=== PATIENT | male | born 1965 | race Hispanic/Latino ===

== ENCOUNTER 2024-07-01 13:18 | Emergency (ER) | payer SELFPAY ==
--- NOTE | ~2024-07-01 | XR_ITS ---
EXAMINATION: XR chest 2V DATE: 07/01/2024 13:54 INDICATION: Chest pain. Palpitations. TECHNIQUE: Frontal and lateral views of the chest were obtained. COMPARISON: None. FINDINGS: There is no pneumonia, pleural effusion, or pneumothorax. The heart size is normal. There i s mild chronic anterior wedging of multiple vertebral bodies. IMPRESSION: 1. No acute cardiopulmonary disease. Reviewed, dictated and finalized at location [facility]
[2024-07-01 13:22] VITALS: BP 145/76; PULSE 93; RESP 16; TEMP 36.6; O2SAT 99
--- NOTE | 2024-07-01 13:30 | PC.NURSE ---
ELO Cam[place]illo in triage room assessing pt.
--- NOTE | 2024-07-01 13:31 | ECG_ITS ---
Test Date: 2024-07-01 13:38:13 Measurements Intervals [place] Rate: 78 P: 70 WI: 169 QRS: 40 QRSD: 87 T: 44 QT: 346 QTc: 396 Interpretive Statements SINUS RHYTHM No previous ECG available for comparison Electronically Signed On 07-01-2024 15:32:22 [facility] DIRECT[facility] by Cyndie Jean M.D.
--- NOTE | 2024-07-01 13:42 | ED.ARRPALP ---
HPI - Arrhythmia/Palpitations General Chief Complaint: Arrhythmia/Palpitations <Cathy Tong APRN - Last Filed: 07/01/24 13:45> Stated Complaint: not feeling well <Cathy Tong APRN - Last Filed: 07/01/24 13:45> Time Seen by Provider: 07/01/24 13:30 <Cathy Tong APRN - Last Filed: 07/01/24 13:45> Focused HPI: Patient is the 58-year-old male who presents to the ER with complaints of heart palpitations and weakness. He reports he believes his symptoms are related to him being nervous. Patient reports he recently got and has been experiencing more anxiety since then. He endorses a small amount of shortness of breath. Patient endorses a history of cardiac stents, but no other pertinent medical history related to this ER visit. He denies any recent fevers, abdominal pain, back pain, other signs/ symptoms of infection. GENERAL: Well-appearing, well-nourished, and in no acute distress. HEAD: Normocephalic, atraumatic. CHEST: Clear to auscultation. ?No respiratory distress. HEART: Regular rate and rhythm.? NEURO: ?Alert and oriented x3. Patient screened in triage and initial orders placed.? ?Additional care and disposition to be based upon?diagnostic testing and treatment. <Cathy Tong APRN - Last Filed: 07/01/24 13:45> History of Present Illness HPI narrative: Agree with the above HPI <Ashutosh Blum MD - Last Filed: 07/02/24 13:52> Related Data Allergies/Adverse Reactions: Allergies Allergy/AdvReac Type Severity Reaction Status Date / Time No Known Allergies Allergy Verified 07/01/24 13:30 <Cathy Tong APRN - Last Filed: 07/01/24 13:45> Review of Systems Review of Systems: All systems reviewed & are unremarkable except as noted in HPI and below <Ashutosh Blum MD - Last Filed: 07/02/24 13:52> Exam Narrative: APPEARANCE: Well appearing, no pain, no distress, well-nourished. HEAD: normocephalic, atraumatic. EYES: PERRLA/EOMI, conjunctivae clear. NOSE: Normal no drainage EARS:TMS clear with good light reflex. THROAT: Pharynx clear, no exudate. NECK: Supple. No adenopathy, no masses. RESPIRATORY: Airway patent, respirations nonlabored. Clear to auscultation bilaterally, no rales, rhonchi, wheezing. CARDIOVASCULAR: Regular rate and rhythm without murmurs rubs or gallops. ABDOMINAL: Soft, nontender, nondistended, normal bowel sounds MUSCULOSKELETAL: Moves all extremities. Strength/ROM intact, No edema, No calf tenderness. NEURO: Alert. Cranial nerves II through XII intact. SKIN: Warm, dry. Normal Color <Ashutosh Blum MD - Last Filed: 07/02/24 13:52> Course Vital Signs Vital signs: Vital Signs Temperature 97.9 F 07/01/24 13:22 Pulse Rate 93 07/01/24 13:22 Respiratory Rate 16 07/01/24 13:22 Blood Pressure 145/76 H 07/01/24 13:22 Pulse Oximetry 99 07/01/24 13:22 Oxygen Delivery Room Air 07/01/24 13:22 Temperature 97.9 F 07/01/24 13:22 Pulse Rate 71 07/01/24 18:27 Respiratory Rate 20 07/01/24 18:27 Blood Pressure 131/82 07/01/24 18:27 Pulse Oximetry 99 07/01/24 18:27 Oxygen Delivery Room Air 07/01/24 13:22 <Cathy Tong APRN - Last Filed: 07/01/24 13:45> Vital Signs Temperature 97.9 F 07/01/24 13:22 Pulse Rate 93 07/01/24 13:22 Respiratory Rate 16 07/01/24 13:22 Blood Pressure 145/76 H 07/01/24 13:22 Pulse Oximetry 99 07/01/24 13:22 Oxygen Delivery Room Air 07/01/24 13:22 Temperature 97.9 F 07/01/24 13:22 Pulse Rate 71 07/01/24 18:27 Respiratory Rate 20 07/01/24 18:27 Blood Pressure 131/82 07/01/24 18:27 Pulse Oximetry 99 07/01/24 18:27 Oxygen Delivery Room Air 07/01/24 13:22 <Ashutosh Blum MD - Last Filed: 07/02/24 13:52> MDM - Arrhythmia/Palpitations MDM Narrative Medical decision making narrative: 58-year-old male present to the emergency department for evaluation of anxiety in her palpitations. Patient is afebrile with no leukocytosis and hemoglobin of 15.6 patient had negative serial troponins patient has no acute abnormalities on his CMP patient was negative for influenza RSV and for COVID. Patient did feel improved with anxiety medications. Patient was encouraged close follow-up with primary care physician. All questions concerns were addressed. <Ashutosh Blum MD - Last Filed: 07/02/24 13:52> Differential Diagnosis Differential diagnosis: Likely palpitations, anxiety, sinus tachycardia, artial fibrillation, artial flutter, ventricular premature beats, supraventricular tachycardia and ventricular tachycardia <Ashutosh Blum MD - Last Filed: 07/02/24 13:52> Lab Data Attestation: I reviewed the patient's lab results. <Ashutosh Blum MD - Last Filed: 07/02/24 13:52> Result diagrams: 07/01/24 13:41 07/01/24 13:41 <Cathy Tong APRN - Last Filed: 07/01/24 13:45> Labs: Lab Results 07/01/24 07/01/24 Range/Units 13:41 16:53 WBC 10.0 (4.5-10.0) K/mm3 RBC 5.09 (4.6-6.20) M/mm3 Hgb 15.6 (14.0-18.0) g/dL Hct 46.1 (42.0-52.0) % MCV 90.6 (80-100) fl MCH 30.6 (26-34) pg MCHC 33.8 (32-36) g/dl RDW 12.1 (11.5-14.5) % Plt Count 218 (150-375) k/mm3 MPV 9.2 (7.4-10.4) fl Immature Gran % (Auto) 0.3 (0-0.5) % Neut % (Auto) 74.9 H (45.5-73.1) % Lymph % (Auto) 15.5 L (18.3-44.2) % [place] % (Auto) 5.7 (2.6-8.5) % Eos % (Auto) 3.2 (0-4.4) % Baso % (Auto) 0.4 (0.2-1.2) % Lymph # (Auto) 1.56 (0.9-3.2) K/mm3 [place] # (Auto) 0.6 (0.1-0.6) K/mm3 Eos # (Auto) 0.3 (0-0.3) K/mm3 Baso # (Auto) 0.0 (0.0-0.1) K/mm3 Abs Immat Gran (auto) 0.03 (0.00-0.031) K/mm3 Absolute Neuts (auto) 7.5 H (1.3-6.7) K/mm3 Absolute Nucleated RBC 0.000 (0.0-0.012) K/mm3 Nucleated RBC % 0.0 (0.0-0.2) % PT 13.0 (11.1-14.7) Seconds INR 0.9 APTT 25.0 (22.3-36.8) Seconds Sodium 137 (137-145) mmol/L Potassium 3.9 (3.4-5.0) mmol/L Chloride 104 (98-107) mmol/L Carbon Dioxide 26 (22-30) mmol/L Anion Gap 7 (4-12) mmol/L BUN 16 (9-20) mg/dL Creatinine 1.10 (0.7-1.3) mg/dL Estim Creat Clear Calc Not Reportable Estimated GFR > 60 (59 - ) Glucose 166 H (65-110) mg/dL Calcium 9.2 (8.4-10.2) mg/dL Total Bilirubin 1.2 (0.2-1.3) mg/dL AST 36 (17-59) U/L ALT 50 (6-50) U/L Alkaline Phosphatase 93 (38-126) U/L Troponin I < 0.012 < 0.012 (0.000-0.034) ng/mL Total Protein 8.0 (6.3-8.2) g/dL Albumin 4.8 (3.5-5.1) g/dL Lipase 222 (23-300) U/L Influenza A (RT-PCR) Negative (Negative) Influenza B (RT-PCR) Negative (Negative) RSV (RT-PCR) Negative (Negative) SARS-CoV-2 RNA (RT-PCR) Negative (Negative) <Cathy Tong, HAND TRUCKER - Last Filed: 07/01/24 13:45> Lab Results 07/01/24 07/01/24 Range/Units 13:41 16:53 WBC 10.0 (4.5-10.0) K/mm3 RBC 5.09 (4.6-6.20) M/mm3 Hgb 15.6 (14.0-18.0) g/dL Hct 46.1 (42.0-52.0) % MCV 90.6 (80-100) fl MCH 30.6 (26-34) pg MCHC 33.8 (32-36) g/dl RDW 12.1 (11.5-14.5) % Plt Count 218 (150-375) k/mm3 MPV 9.2 (7.4-10.4) fl Immature Gran % (Auto) 0.3 (0-0.5) % Neut % (Auto) 74.9 H (45.5-73.1) % Lymph % (Auto) 15.5 L (18.3-44.2) % [place] % (Auto) 5.7 (2.6-8.5) % Eos % (Auto) 3.2 (0-4.4) % Baso % (Auto) 0.4 (0.2-1.2) % Lymph # (Auto) 1.56 (0.9-3.2) K/mm3 [place] # (Auto) 0.6 (0.1-0.6) K/mm3 Eos # (Auto) 0.3 (0-0.3) K/mm3 Baso # (Auto) 0.0 (0.0-0.1) K/mm3 Abs Immat Gran (auto) 0.03 (0.00-0.031) K/mm3 Absolute Neuts (auto) 7.5 H (1.3-6.7) K/mm3 Absolute Nucleated RBC 0.000 (0.0-0.012) K/mm3 Nucleated RBC % 0.0 (0.0-0.2) % PT 13.0 (11.1-14.7) Seconds INR 0.9 APTT 25.0 (22.3-36.8) Seconds Sodium 137 (137-145) mmol/L Potassium 3.9 (3.4-5.0) mmol/L Chloride 104 (98-107) mmol/L Carbon Dioxide 26 (22-30) mmol/L Anion Gap 7 (4-12) mmol/L BUN 16 (9-20) mg/dL Creatinine 1.10 (0.7-1.3) mg/dL Estim Creat Clear Calc Not Reportable Estimated GFR > 60 (59 - ) Glucose 166 H (65-110) mg/dL Calcium 9.2 (8.4-10.2) mg/dL Total Bilirubin 1.2 (0.2-1.3) mg/dL AST 36 (17-59) U/L ALT 50 (6-50) U/L Alkaline Phosphatase 93 (38-126) U/L Troponin I < 0.012 < 0.012 (0.000-0.034) ng/mL Total Protein 8.0 (6.3-8.2) g/dL Albumin 4.8 (3.5-5.1) g/dL Lipase 222 (23-300) U/L Influenza A (RT-PCR) Negative (Negative) Influenza B (RT-PCR) Negative (Negative) RSV (RT-PCR) Negative (Negative) SARS-CoV-2 RNA (RT-PCR) Negative (Negative) <Ashutosh Blum MD - Last Filed: 07/02/24 13:52> Imaging Data Radiologist's impression: Impressions Chest X-Ray 07/01/24 14:04 IMPRESSION: 1. No acute cardiopulmonary disease. <Ashutosh Blum MD - Last Filed: 07/02/24 13:52> ECG Data EKG #1: EKG Interpretation: normal rate, sinus rhythm, no ectopy, non-specific ST changes, ST elevation and normal QT <Ashutosh Blum MD - Last Filed: 07/02/24 13:52> Discharge Plan Discharge Clinical Impression: Palpitations, Anxiety <Cathy Tong APRN - Last Filed: 07/01/24 13:45> Patient Disposition: Home, Self-Care <Cathy Tong APRN - Last Filed: 07/01/24 13:45> Condition: Stable <Cathy Tong APRN - Last Filed: 07/01/24 13:45> Instructions: Antibiotic Form, Heart Palpitations (DC), Anxiety (ED) <Cathy Tong APRN - Last Filed: 07/01/24 13:45> Additional Instructions: Avoid caffeine. Avoid alcohol. Have close follow-up with your primary care physician. Ativan as needed for anxiety. Worsening symptoms then please call or return to the emergency department. <Cathy Tong APRN - Last Filed: 07/01/24 13:45> Prescriptions: New lorazepam [Ativan] 0.5 mg tablet 0.5 mg PO DAILY PRN (Reason: anxiety) Qty: 14 0RF <Cathy Tong APRN - Last Filed: 07/01/24 13:45> Follow-up/Referrals: PHYSICIAN NOT ON STAFF,NONSTAFF [Non-Staff] - <Cathy Tong APRN - Last Filed: 07/01/24 13:45>
[2024-07-01 13:48] LABS: Basophils Percent Auto 0.4 % (0.2-1.2); Eosinophils Absolute Auto 0.3 K/mm3 (0-0.3); Eosinophils Percent Auto 3.2 % (0-4.4); Hematocrit 46.1 % (42.0-52.0); Hemoglobin 15.6 g/dL (14.0-18.0); Immature Granulocyte Absolute 0.03 K/mm3 (0.00-0.031); Immature Granulocyte Percent A 0.3 % (0-0.5); Lymphocytes Absolute Auto 1.56 K/mm3 (0.9-3.2); Lymphocytes Percent Auto 15.5 % (18.3-44.2); Mean Corpuscular HGB Conc 33.8 g/dl (32-36); Mean Corpuscular Hemoglobin 30.6 pg (26-34); Mean Corpuscular Volume 90.6 fl (80-100); Mean Platelet Volume 9.2 fl (7.4-10.4); Monocytes Absolute Auto 0.6 K/mm3 (0.1-0.6); Monocytes Percent Auto 5.7 % (2.6-8.5); Neutrophils Absolute Auto 7.5 K/mm3 (1.3-6.7); Neutrophils Percent Auto 74.9 % (45.5-73.1); Platelet Count Result 218 k/mm3 (150-375); Red Blood Count 5.09 M/mm3 (4.6-6.20); Red Cell Distribution Width 12.1 % (11.5-14.5)
[2024-07-01 13:59] LABS: Alanine Aminotransferase 50 U/L (6-50); Albumin Level 4.8 g/dL (3.5-5.1); Alkaline Phosphatase 93 U/L (38-126); Anion Gap 7 mmol/L (4-12); Aspartate Amino Transferase 36 U/L (17-59); Bilirubin,Total 1.2 mg/dL (0.2-1.3); Blood Urea Nitrogen 16 mg/dL (9-20); Calcium 9.2 mg/dL (8.4-10.2); Carbon Dioxide 26 mmol/L (22-30); Chloride 104 mmol/L (98-107); Estimated Glomerular Filt Rate > 60; Glucose 166 mg/dL (65-110); Lipase 222 U/L (23-300); Potassium 3.9 mmol/L (3.4-5.0); Sodium 137 mmol/L (137-145)
[2024-07-01 14:11] LABS: Troponin I < 0.012 ng/mL (0.000-0.034)
[2024-07-01 14:12] LABS: INR 0.9
[2024-07-01 14:24] LABS: Influenza A QL RT-PCR Negative (Negative); Influenza B QL RT-PCR Negative (Negative); RSV RNA, RT-PCR Negative (Negative); SARS-CoV-2 RNA PCR Negative (Negative)
--- NOTE | 2024-07-01 16:45 | ECG_ITS ---
Test Date: 2024-07-01 16:58:11 Measurements Intervals [place] Rate: 68 P: 58 [place]: 169 QRS: 39 QRSD: 86 T: 48 QT: 366 QTc: 391 Interpretive Statements SINUS RHYTHM ST ELEVATION LIKELY EARLY REPOLARIZATION OTHERWISE NORMAL ECG Compared to ECG 07/01/2024 13:38:13 No significant changes Electronically Signed On 07-02-2024 10:53:57 [employer]SH[employer] LEADER by Ryley Mg M.D.
[2024-07-01] MEDS: LORazepam INJ (*CRX) 2 MG/ML VIAL 1 MG IV PUSH (16:51)
[2024-07-01 16:54] VITALS: BP 121/81; PULSE 67; RESP 15; O2SAT 97
[2024-07-01 17:24] LABS: Troponin I < 0.012 ng/mL (0.000-0.034)
[2024-07-01 18:27] VITALS: BP 131/82; PULSE 71; RESP 20; O2SAT 99
== END 2024-07-01 18:28 | disposition home or self-care (01) ==
PROVIDERS: Emergency Provider Emergency Medicine
DX: R00.2 Palpitations (principal); F41.9 Anxiety disorder, unspecified; Z20.822 Contact with and (suspected) exposure to COVID-19
CPT/HCPCS: 36415; 71046; 80053; 83690; 84484; 85025; 85610; 85730; 87637; 93005; 96374; 99284; J2060